=== PATIENT | female | born 2000 | race African-American/Black ===

== ENCOUNTER 2024-12-23 03:39 | Inpatient (IN) | payer MEDICAID ==
[~2024-12-23] VITALS: Ht 160 cm; Wt 68.0 kg
[2024-12-23] MEDS: KETOROLAC 15MG/ML VIAL IV ONE (04:08)
[2024-12-23] MEDS: SODIUM CHLORIDE 0.9% 1,000 ML IV ONE ×2 (04:08→05:02)
[2024-12-23 04:35] LABS: BASOPHILS % 0.3 % (0.0-2.0); HEMATOCRIT. 36.3 % (36.0-48.0); HEMOGLOBIN. 12.3 g/dL (12.0-16.0); LYMPHOCYTES % 7.2 % (20.0-50.0); MEAN CORPUSCULAR HEMOGLOBIN 30.2 pg (28.0-32.0); MEAN CORPUSCULAR HGB CONC 33.9 g/dL (31.0-37.0); MEAN CORPUSCULAR VOLUME 88.9 fL (81.0-99.0); MEAN PLATELET VOLUME 8.5 fl (7.4-10.4); MONOCYTES % 8.2 % (2.0-8.0); NEUTROPHILS % 84.3 % (40.0-76.0); PLATELET 256 x1000/uL (130-400); RED BLOOD CELL COUNT 4.09 mill/uL (4.2-5.4); RED CELL DISTRIBUTION WIDTH 14.1 % (11.6-14.6); WHITE BLOOD COUNT 15.3 x1000/uL (4.5-11.0)
[2024-12-23 04:53] LABS: INR 1.1; PROTHROMBIN TIME 11.6 sec (9.6-11.0)
[2024-12-23 04:56] LABS: CHLORIDE 103 mEq/L (98-107); POTASSIUM 3.5 mEq/L (3.5-5.1); SODIUM 135 mEq/L (136-145)
[2024-12-23 04:57] LABS: CALCIUM 9.5 mg/dL (8.7-10.4); CARBON DIOXIDE 23 mEq/L (21-32)
[2024-12-23 05:01] LABS: HCG SCREEN NEGATIVE
[2024-12-23 05:02] LABS: CREATININE 0.9 mg/dL (0.6-1.0); GLUCOSE 147 mg/dL (70-105); UREA NITROGEN BLOOD 8 mg/dL (9-23)
[2024-12-23 05:03] LABS: ETHANOL BLOOD < 10 mg/dL (<10)
[2024-12-23 05:04] LABS: ALANINE AMINOTRANSFERASE 8 IU/L (10-49); ALBUMIN 4.2 g/dL (3.2-4.8); ASPARTATE AMINOTRANSFERASE 18 IU/L (<34); BILIRUBIN DIRECT 0.3 mg/dL (<=3.0); BILIRUBIN TOTAL 0.9 mg/dL (0.1-1.0)
[2024-12-23 05:24] LABS: LACTIC ACID 2.5 mmol/L (0.4-2.0)
[2024-12-23] MEDS ORDERED: VANCOMYCIN 1G PREMIX 200 ML IV NR (05:30)
[2024-12-23] MEDS: PIPERACILLIN/TAZO 3.375G/50ML 50 ML IV NR (05:44)
[2024-12-23] MEDS ORDERED: IOHEXOL-300 100 ML BOTTLE ONE (05:46)
[2024-12-23 05:55] LABS: CLARITY URINE TURBID (CLEAR); COLOR URINE YELLOW (YELLOW); GLUCOSE URINE NEGATIVE (NEGATIVE); KETONES URINE TRACE (NEGATIVE); LEUKOCYTE ESTERASE URINE 3+ (NEGATIVE); NITRITE URINE POSITIVE (NEGATIVE); OCCULT BLOOD URINE 1+ (NEGATIVE); PH URINE 6.5 (4.5-8.0); PROTEIN URINE 2+ (NEGATIVE); SPECIFIC GRAVITY URINE 1.016 (1.005-1.030)
[2024-12-23 05:58] LABS: *AMPHETAMINES SCREEN URINE NEGATIVE (NEGATIVE); *BARBITURATES SCREEN URINE NEGATIVE (NEGATIVE); *BENZODIAZEPINES SCREEN URINE NEGATIVE (NEGATIVE); *COCAINE SCREEN URINE PRESUMPTIVE POSITIVE (NEGATIVE)
[2024-12-23 05:59] LABS: CANNABINOID URINE SCREEN PRESUMPTIVE POSITIVE (NEGATIVE); ECSTASY MDMA SCREEN URINE NEGATIVE (NEGATIVE); METHADONE URINE SCREEN NEGATIVE (NEGATIVE); OPIATES URINE SCREEN NEGATIVE (NEGATIVE); PHENCYCLIDINE URINE SCREEN NEGATIVE (NEGATIVE)
[2024-12-23] MEDS ORDERED: MAGNESIUM/ALUMINUM HYDROXIDE/SIMETHICONE 30ML UDC PO PRN (06:30)
[2024-12-23] MEDS ORDERED: ACETAMINOPHEN 325MG TABLET PO PRN (06:30)
[2024-12-23] MEDS ORDERED: CLONIDINE 0.1MG TABLET PO PRN (06:30)
[2024-12-23 06:32] LABS: BACTERIA URINE 1+; SQUAMOUS EPITHELIAL CELL URINE 2+ /lpf (RARE/1+); WBC URINE TNTC /hpf (0-2)
[2024-12-23] MEDS: ENOXAPARIN 40MG/0.4ML SYR SUBCUT SCH (10:16)
[2024-12-23] MEDS: SODIUM CHLORIDE 0.9% 1,000 ML IV SCH (10:17)
[2024-12-23] MEDS: VANCOMYCIN 1.25GM/250ML 250 ML IV SCH (10:17)
[2024-12-23] MEDS: ACETAMINOPHEN 325MG TABLET PO PRN (10:33)
[2024-12-23 11:21] VITALS: BP 102/53; PULSE 94; RESP 16; TEMP 38.8
[2024-12-23 12:00] VITALS: BP 97/47; PULSE 76; RESP 16; TEMP 36.6; O2SAT 100
[2024-12-23] MEDS ORDERED: NALOXONE HCL 0.4MG/ML VIAL IV PRN (13:15)
[2024-12-23] MEDS: MORPHINE SULFATE 2 MG/ML INJ (NOT FOR IM USE) IV PRN (13:26)
[2024-12-23] MEDS: HYDROCODONE/ACETAMINOPHEN 5/325MG TABLET PO PRN (15:01)
[2024-12-23] MEDS: PIPERACILLIN/TAZO 3.375G/50ML 50 ML IV SCH (15:50)
[2024-12-23 16:00] VITALS: BP 102/56; PULSE 104; RESP 16; TEMP 36.8; O2SAT 98
[2024-12-23 20:00] VITALS: BP 108/69; PULSE 105; RESP 17; TEMP 36.6; O2SAT 99
[2024-12-23] MEDS ORDERED: VANCOMYCIN 1GM PMX (XELLIA) 200 ML IV SCH (21:00)
[2024-12-24] VITALS (7 sets, daily range): BP systolic 94–110; BP diastolic 43–67; PULSE 83–102; RESP 17–22; TEMP 36.2–38.6; O2SAT 100
[2024-12-24] MEDS: IPRATROPIUM/ALBUTEROL 0.5-3(2.5)MG/3ML NEB HHN PRN (01:35)
[2024-12-24 06:45] LABS: CALCIUM 8.8 mg/dL (8.7-10.4); CARBON DIOXIDE 25 mEq/L (21-32); CHLORIDE 103 mEq/L (98-107); POTASSIUM 3.6 mEq/L (3.5-5.1); SODIUM 137 mEq/L (136-145)
[2024-12-24 06:47] LABS: BASOPHILS % 0.2 % (0.0-2.0); EOSINOPHILS % 0.3 % (0.0-5.0); HEMATOCRIT. 35.2 % (36.0-48.0); HEMOGLOBIN. 11.8 g/dL (12.0-16.0); LYMPHOCYTES % 10.3 % (20.0-50.0); MEAN CORPUSCULAR HEMOGLOBIN 30.4 pg (28.0-32.0); MEAN CORPUSCULAR HGB CONC 33.4 g/dL (31.0-37.0); MEAN CORPUSCULAR VOLUME 90.9 fL (81.0-99.0); MEAN PLATELET VOLUME 8.5 fl (7.4-10.4); MONOCYTES % 8.8 % (2.0-8.0); NEUTROPHILS % 80.4 % (40.0-76.0); PLATELET 218 x1000/uL (130-400); RED BLOOD CELL COUNT 3.87 mill/uL (4.2-5.4); RED CELL DISTRIBUTION WIDTH 13.7 % (11.6-14.6); WHITE BLOOD COUNT 10.6 x1000/uL (4.5-11.0)
[2024-12-24 06:51] LABS: CREATININE 0.9 mg/dL (0.6-1.0); GLUCOSE 110 mg/dL (70-105); UREA NITROGEN BLOOD 6 mg/dL (9-23)
[2024-12-25] VITALS (7 sets, daily range): BP systolic 94–119; BP diastolic 31–81; PULSE 57–94; RESP 16–18; TEMP 36.3–36.9; O2SAT 94–100
[2024-12-25] MEDS: POLYETHYLENE GLYCOL 3350 (17GM) 1 DOSE PACK PO SCH (16:37)
[2024-12-25] MEDS: CEFTRIAXONE 2GM/50ML 50 ML IV SCH (17:11)
[2024-12-25] MEDS: SENNOSIDES/DOCUSATE SOD 8.6/50MG TABLET PO SCH (21:26)
[2024-12-26 04:00] VITALS: BP 105/53; PULSE 80; RESP 18; TEMP 36.7; O2SAT 98
[2024-12-26 08:00] VITALS: BP 100/42; PULSE 82; RESP 16; TEMP 36.7; O2SAT 98
[2024-12-26] MEDS ORDERED: LEVO750T68 MT (11:09)
[2024-12-26] MEDS ORDERED: HYDR-4001 MT (11:09)
[2024-12-26] MEDS ORDERED: TOPUD PO (11:09)
[2024-12-26 11:26] VITALS: BP 109/52; PULSE 89; TEMP 98.1; O2SAT 99
[2024-12-26 12:00] VITALS: BP 105/46; PULSE 82; RESP 16; TEMP 36.8; O2SAT 98
== END 2024-12-26 13:38 | disposition home or self-care (01) | DRG 720 ==
LOC: ER 03:39 → EDBEDREQ 05:26 → 5WST 05:30 → EDBEDREQ 05:33
PROVIDERS: ADMIT Family Medicine Adult Medicine; ATTEND Family Medicine Adult Medicine
DX: A41.51 Sepsis due to Escherichia coli [E. coli] (principal); E87.20 Acidosis, unspecified; R16.0 Hepatomegaly, not elsewhere classified; N10 Acute pyelonephritis; K57.30 Diverticulosis of large intestine without perforation or abscess without bleeding; K76.9 Liver disease, unspecified; F14.10 Cocaine abuse, uncomplicated; F12.10 Cannabis abuse, uncomplicated; F10.10 Alcohol abuse, uncomplicated; B96.20 Unspecified Escherichia coli [E. coli] as the cause of diseases classified elsewhere; B96.89 Other specified bacterial agents as the cause of diseases classified elsewhere; J45.909 Unspecified asthma, uncomplicated; Y90.9 Presence of alcohol in blood, level not specified; Z16.11 Resistance to penicillins; R65.20 Severe sepsis without septic shock; F19.90 Other psychoactive substance use, unspecified, uncomplicated
CPT/HCPCS: 36415; 74177; 80048; 80076; 80305; 80320; 81003; 83605; 84145; 84703; 85025; 87077; 87186; 94070; 94640; 94664; 99291; A4606; J0696; J1650; J1885; J2270; J2543; J3370; J7030; Q9967; G0480